=== PATIENT | female | born 1995 | race Caucasian/White ===

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

== ENCOUNTER 2017-03-03 09:53 | Emergency (ER) | payer MEDICAID ==
[~2017-03-03] VITALS: Ht 157.5 cm; Wt 60.9 kg
[2017-03-03 09:54] VITALS: BP 101/68
[2017-03-03] MEDS ORDERED: PHENAZOPYRIDINE 200 MG TABLET ONE (10:29)
[2017-03-03 10:41] LABS: HCG UR OBC PASS
[2017-03-03] MEDS ORDERED: PHENAZOPYRIDINE 200 MG TABLET PO ONE (11:00)
[2017-03-03] MEDS ORDERED: CEFTRIAXONE 250 MG ONE (11:22)
[2017-03-03] MEDS ORDERED: AZITHROMYCIN 500 MG TABLET ONE (11:22)
[2017-03-03] MEDS ORDERED: LIDOCAINE 1%, 20ML ONE (11:23)
[2017-03-03] MEDS ORDERED: CEFTRIAXONE 250 MG IM ONE (11:30)
[2017-03-03] MEDS ORDERED: AZITHROMYCIN 500 MG TABLET PO ONE (11:30)
== END 2017-03-03 12:07 | disposition home or self-care (01) ==
LOC: ED 10:08
DX: R30.0 Dysuria (principal)
CPT/HCPCS: 81003; 81025; 87491; 87591; 96372; 99284; J0696

== ENCOUNTER 2018-03-17 08:17 | Emergency (ER) | payer MEDICAID ==
[~2018-03-17] VITALS: Ht 160 cm; Wt 71.1 kg
[2018-03-17] MEDS ORDERED: IBUPROFEN 200 MG TABLET ONE (08:52)
[2018-03-17] MEDS ORDERED: IBUPROFEN 200 MG TABLET PO ONE (09:00)
[2018-03-17 11:04] VITALS: BP 115/47
== END 2018-03-17 12:34 | disposition home or self-care (01) ==
LOC: ED 09:53
DX: G89.11 Acute pain due to trauma (principal); M79.672 Pain in left foot; M25.572 Pain in left ankle and joints of left foot; W18.39XA Other fall on same level, initial encounter; Y93.89 Activity, other specified; Y92.098 Other place in other non-institutional residence as the place of occurrence of the external cause; Y99.8 Other external cause status
CPT/HCPCS: 99284

== ENCOUNTER 2018-12-01 19:39 | Emergency (ER) | payer MEDICAID ==
[~2018-12-01] VITALS: Ht 157.5 cm; Wt 67.4 kg
[~2018-12-01 19:39] MED LIST changes: +LORA-247 PO; -LORA10TA3 PO
[2018-12-01 19:40] VITALS: BP 113/75
[2018-12-01] MEDS ORDERED: DEXAMETHASONE 4 MG TABLET ONE (19:57)
[2018-12-01] MEDS ORDERED: DEXAMETHASONE 4 MG TABLET PO ONE (20:00)
== END 2018-12-01 20:26 | disposition home or self-care (01) ==
LOC: ED 20:20
DX: J30.2 Other seasonal allergic rhinitis (principal); J02.8 Acute pharyngitis due to other specified organisms
CPT/HCPCS: 87081; 87880; 99283

== ENCOUNTER 2018-12-29 18:48 | Emergency (ER) | payer MEDICAID ==
[~2018-12-29] VITALS: Ht 157.5 cm; Wt 67.1 kg
[2018-12-29 18:52] VITALS: BP 114/78
[2018-12-29 19:58] LABS: CULTURE INDICATED? YES; MICROSCOPIC INDICATED
[2018-12-29 20:01] LABS: HCG UR SG 1.025 (1.003-1.030)
== END 2018-12-29 20:34 | disposition home or self-care (01) ==
LOC: ED 18:56
DX: N30.00 Acute cystitis without hematuria (principal)
CPT/HCPCS: 81001; 81025; 87077; 87086; 87186; 99283

== ENCOUNTER 2019-07-10 17:59 | Emergency (ER) | payer MEDICAID ==
[~2019-07-10] VITALS: Ht 160 cm; Wt 72.0 kg
[2019-07-10 18:23] VITALS: BP 117/83
--- NOTE | 2019-07-10 18:39 | NUR ---
LOG MANAGER: ARUNA SENT TO LAB.
[2019-07-10 18:47] LABS: CULTURE INDICATED? YES; MICROSCOPIC INDICATED
[2019-07-10 19:16] LABS: HCG UR SG 1.015 (1.003-1.030)
== END 2019-07-10 19:40 | disposition home or self-care (01) ==
LOC: ED 19:20
DX: N30.00 Acute cystitis without hematuria (principal)
CPT/HCPCS: 81001; 81025; 87077; 87086; 99283

== ENCOUNTER 2020-02-17 05:20 | Emergency (ER) | payer MEDICAID ==
[~2020-02-17] VITALS: Ht 160 cm; Wt 72.1 kg
[2020-02-17 05:23] VITALS: BP 145/100
== END 2020-02-17 06:21 | disposition home or self-care (01) ==
LOC: ED 06:11
DX: J20.8 Acute bronchitis due to other specified organisms (principal); J30.9 Allergic rhinitis, unspecified; B97.89 Other viral agents as the cause of diseases classified elsewhere; R00.0 Tachycardia, unspecified; R06.02 Shortness of breath
CPT/HCPCS: 71045; 99283

== ENCOUNTER 2020-03-25 12:30 | Emergency (ER) | payer MEDICAID ==
[~2020-03-25] VITALS: Ht 160 cm; Wt 72.4 kg
--- NOTE | 2020-03-25 14:05 | NUR ---
PT SITTING ON BED COMFORTABLY. ERP AT BEDSIDE AND DISCUSSING LAB RESULTS AND D/C INSTRUCTIONS. PT VERBALIZED UNDERSTANDING. NO NEEDS AT THIS TIME.
[2020-03-25 14:21] VITALS: BP 129/79
== END 2020-03-25 14:38 | disposition home or self-care (01) ==
LOC: ED 13:08
DX: J45.909 Unspecified asthma, uncomplicated (principal); Z20.828 Contact with and (suspected) exposure to other viral communicable diseases; K21.9 Gastro-esophageal reflux disease without esophagitis; F41.1 Generalized anxiety disorder; M94.0 Chondrocostal junction syndrome [Tietze]; I51.7 Cardiomegaly; Z79.01 Long term (current) use of anticoagulants
CPT/HCPCS: 36415; 71045; 85379; 87635; 93005; 99285

== ENCOUNTER 2020-12-30 16:40 | Emergency (ER) | payer MEDICAID ==
[~2020-12-30] VITALS: Ht 160 cm; Wt 67.2 kg
--- NOTE | 2020-12-30 17:15 | NUR ---
THROUGHPUT: UA SENT TO LAB BY OLIMPIA GARCIA
[2020-12-30 17:47] LABS: MICROSCOPIC INDICATED
--- NOTE | 2020-12-30 19:57 | NUR ---
TELEPHONE CALL TO LAB. WILL ADD ON HCG TO EXISTING URINE SAMPLE.
[2020-12-30 20:00] VITALS: BP 108/68
--- NOTE | 2020-12-30 20:09 | NUR ---
MED MARINE FROM PHARM.
[2020-12-30] MEDS ORDERED: NITROFURANTOIN (MACROBID) 100 MG CAPSULE PO ONE (20:30)
[2020-12-30 20:34] LABS: HCG UR SG 1.029 (1.003-1.030)
--- NOTE | 2020-12-30 21:02 | NUR ---
REPORT TO SARAH BRODERICK. PT RESTING ON [employer] W/ CALL LIGHT IN REACH AND SIDE RAILS UPX2. RESP EVEN AND UNLABORED, NADN. AWAITING DC [facility].
--- NOTE | 2020-12-30 21:07 | NUR ---
REPORT FROM TAI BRODERICK
== END 2020-12-30 21:30 | disposition home or self-care (01) ==
LOC: ED 21:05
DX: N30.01 Acute cystitis with hematuria (principal); R30.0 Dysuria
CPT/HCPCS: 81001; 81025; 87077; 87086; 87186; 99283